=== PATIENT | male | born 1980 | race Caucasian/White ===

== ENCOUNTER 2019-08-26 17:29 | Emergency (ER) | payer SELFPAY ==
[~2019-08-26] VITALS: Ht 177.8 cm; Wt 79.5 kg
[~2019-08-26 17:29] MED LIST: CEPHALEXIN500 MG OR; NO HOME MEDS
[2019-08-26 18:43] LABS: HEMATOCRIT 41.3 % (39.0-50.0); HEMOGLOBIN 13.2 g/dl (14.0-18.0); IMMATURE GRANULOCYTES 0.3 % (0.0-5.0); MEAN CELL VOLUME 87.7 fL CALC (80.0-100.0); NEUT# 4.71 thou/uL (1.82-7.42); RED BLOOD COUNT 4.71 mill/uL (4.70-6.10); RED CELL DISTRI WIDTH 12.5 % (11.5-15.5)
[2019-08-26] MEDS ORDERED: TAM75CAP PO (19:33)
[2019-08-26] MEDS ORDERED: TESSALON PER100 MG PO (19:33)
[2019-08-26 19:40] VITALS: BP 119/77
== END 2019-08-26 19:40 | disposition home or self-care (01) | DRG 153 ==
LOC: ED 17:29
PROVIDERS: Family Medicine
DX: J11.1 Influenza due to unidentified influenza virus with other respiratory manifestations (principal); F17.210 Nicotine dependence, cigarettes, uncomplicated

== ENCOUNTER 2020-07-31 10:52 | Emergency (ER) | payer SELFPAY ==
[~2020-07-31] VITALS: Ht 177.8 cm; Wt 81.8 kg
[~2020-07-31 10:52] MED LIST changes: +TAM75CAP PO; +TESSALON PER100 MG PO
[2020-07-31 11:28] LABS: HEMATOCRIT 40.8 % (39.0-50.0); IMMATURE GRANULOCYTES 0.4 % (0.0-5.0); MEAN CELL VOLUME 89.7 fL CALC (80.0-100.0); MEAN CORPUSCULAR HGB 28.6 pG CALC (26.0-32.0); MEAN CORPUSCULAR HGB CONC 31.9 g/dL CAL (32.0-36.0); NEUT# 11.38 thou/uL (1.82-7.42); RED BLOOD COUNT 4.55 mill/uL (4.70-6.10); RED CELL DISTRI WIDTH 12.5 % (11.5-15.5)
[2020-07-31 12:48] LABS: ALBUMIN 3.8 g/dL (3.2-5.0); ALKALINE PHOSPHATASE 61 u/l (38-126); ANION GAP 12 (6-22 (CALC)); BILIRUBIN, TOTAL 0.4 mg/dL (0.0-1.4); BUN 9 mg/dL (9-20); BUN/CREATININE RATIO 12 (12-20 (CALC)); CARBON DIOXIDE 23 mmol/l (22-30); CHLORIDE 104 mmol/l (95-108); CREATININE 0.8 mg/dL (0.7-1.3); GFR > 60 ML/MIN (>=60 (CALC)); GFR FOR AFR.AMER. > 60 ML/MIN (>=60 (CALC)); LIPASE 22 u/l (23-300); POTASSIUM 4.3 mmol/l (3.5-5.1); SGOT/AST 19 u/l (17-59); SODIUM 135 mmol/l (137-146); TOTAL PROTEIN 7.2 g/dL (6.3-8.2)
[2020-07-31 13:50] LABS: URINE BLOOD DIPSTICK MODERATE (NEGATIVE); URINE COLOR YELLOW; URINE GLUCOSE - DIPSTICK NEGATIVE (NEGATIVE); URINE KETONE TRACE mg/dL (NEGATIVE); URINE NITRITE - DIPSTICK NEGATIVE (Negative); URINE PH 6.5 (4.5-8.0); URINE PROTEIN - DIPSTICK 30 mg/dL (NEG-TRACE)
[2020-07-31 13:55] LABS: URINE BILIRUBIN - DIPSTICK NEGATIVE (NEGATIVE); URINE LEUK ESTERASE SMALL (NEGATIVE)
[2020-07-31 13:57] LABS: URINE WBC 50-100 WBC/hpf (0-5)
[2020-07-31] MEDS ORDERED: Levaquin PO (14:16)
[2020-07-31] MEDS ORDERED: HYDROCO/APAP1 TA9 PO (14:17)
[2020-07-31 16:00] VITALS: BP 102/56
== END 2020-07-31 16:00 | disposition home or self-care (01) | DRG 690 ==
LOC: ED 10:52
DX: N39.0 Urinary tract infection, site not specified (principal); N45.3 Epididymo-orchitis; F17.210 Nicotine dependence, cigarettes, uncomplicated
CPT/HCPCS: Q9967

== ENCOUNTER 2023-02-22 00:50 | Emergency (ER) | payer SELFPAY ==
[~2023-02-22 00:50] MED LIST changes: +HYDROCO/APAP1 TA9 PO; +Levaquin PO
== END 2023-02-22 01:08 | disposition left against medical advice (07) | DRG 951 ==
LOC: ED 00:50 → LWOBS 01:08
DX: Z53.21 Procedure and treatment not carried out due to patient leaving prior to being seen by health care provider (principal)

== ENCOUNTER 2024-03-19 21:30 | Emergency (ER) | payer SELFPAY ==
[~2024-03-19] VITALS: Ht 177.8 cm; Wt 98.0 kg
[2024-03-19] MEDS ORDERED: SULFAMETHOXAZOLE W/TRIMETHOPRI 1 COMBO TAB PO ONE (21:55)
[2024-03-19] MEDS ORDERED: KETOROLAC TROMETHAMINE 30 MG/ML SDV IM ONE (21:55)
[2024-03-19] MEDS ORDERED: Cefdinir 300 MG/CAP PO ONE (21:55)
[2024-03-19] MEDS ORDERED: Diph, Acellular Pertussis, Tet 0.5 ML/VIAL (Tdap) SDV IM ONE (21:55)
[2024-03-19] MEDS ORDERED: NAPROXEN500 MG PO (22:00)
[2024-03-19] MEDS ORDERED: BACTRIM DS1 TAB PO (22:00)
[2024-03-19] MEDS ORDERED: CEFDINIR300 MG PO (22:00)
[2024-03-19 22:16] VITALS: BP 133/83
== END 2024-03-19 22:16 | disposition home or self-care (01) | DRG 603 ==
LOC: ED 21:30
DX: L03.116 Cellulitis of left lower limb (principal); F17.200 Nicotine dependence, unspecified, uncomplicated

== ENCOUNTER 2024-08-30 09:10 | Emergency (ER) | payer SELFPAY ==
[~2024-08-30 09:10] MED LIST changes: +BACTRIM DS1 TAB PO; +CEFDINIR300 MG PO; +NAPROXEN500 MG PO
== END 2024-08-30 09:13 | disposition left against medical advice (07) | DRG 951 ==
LOC: ED 09:10 → LWOBS 09:13
DX: Z53.21 Procedure and treatment not carried out due to patient leaving prior to being seen by health care provider (principal)